=== PATIENT | female | born 1950 | race Two or more races ===

== ENCOUNTER 2022-07-21 11:20 | Emergency (ER) | payer OTHER ==
[~2022-07-21] VITALS: Ht 160 cm; Wt 88.9 kg
[2022-07-21] MEDS ORDERED: ADULT ASPIRIN81 MG PO (11:49)
== END 2022-07-21 13:16 | disposition home or self-care (01) ==
LOC: ER 11:20
DX: J06.9 Acute upper respiratory infection, unspecified (principal); Z20.822 Contact with and (suspected) exposure to COVID-19